=== PATIENT | female | born 1995 | race Caucasian/White ===

== ENCOUNTER 2020-06-15 18:47 | Emergency (ER) | payer OTHER, SELFPAY ==
--- NOTE | 2020-06-15 18:52 | ED.EAR ---
HPI - Ear Problem General Chief complaint: Ear Stated complaint: ear pain History of Present Illness HPI Narrative: Patient is a 24-year-old female who presents complaining of right ear pain x3 to 4 days. She reports a history of ear problems as a child. She also reports sinus pain and pressure x5 days. She denies fever, sore throat, cough or other complaints. She reports taking [id number] allergy medication with limited relief. MD Complaint: ear pain Location: right ear Related Data Allergies Allergy/AdvReac Type Severity Reaction Status Date / Time No Known Allergies Allergy Mild Verified 06/15/20 18:53 Review of Systems Review of Systems: Narrative: CONSTITUTIONAL: Denies fever, chills, or sweats. EYES: Denies visual changes, redness, or discharge. ENT: Right otalgia and facial pain CARDIOVASCULAR: Denies chest pain, palpitations, or edema. RESPIRATORY: Denies cough or dyspnea. GASTROINTESTINAL: Denies abdominal pain, nausea, vomiting, or diarrhea. GENITOURINARY: Denies dysuria or hematuria. SKIN: Denies rash or itching. MUSCULOSKELETAL: Denies back pain, joint pain, or myalgia. NEUROLOGIC: Denies headache, numbness, dizziness, or weakness. PSYCHIATRIC: Denies anxiety or depression. [facility] Past Medical History Medical History No significant past medical history Surgical History Surgical History (Updated 06/15/20 @ 18:55 by JORDAN More) No significant past surgical history Family History Family History Other No significant family history Social History Social History Smoking status: Never smoker Alcohol intake: current Substance use: never Living arrangements: with family Occupation/Education: occupation Gender identity (if verbalized by the patient): Female Comments At the time of signature, I have reviewed and agree with nursing past medical, surgical, social, and family history unless otherwise noted. Please see nursing chart for further information. There is no relevant family history pertinent to the presenting complaint. Exam Narrative: Exam Narrative: GENERAL: Well-appearing, well-nourished, and in no acute distress. HEAD: Normocephalic, atraumatic. EYES: EOMI. No redness or drainage. Conjunctiva are normal. ENT: Mucous membranes pink and moist. Nares clear. No rhinorrhea. Left TM normal. Right TM injected, bulging and cloudy. Throat normal. Uvula midline. Frontal sinus tenderness with palpation. NECK: AROM. Supple. No lymphadenopathy. CHEST: No respiratory distress. HEART: Regular rate and rhythm. EXTREMITIES: Normal range of motion. SKIN: Warm, dry, no rash. NEURO: No focal deficits. Alert and oriented x3. Gait steady. PSYCH: Normal affect. No signs of depression or anxiety. Course Vital Signs Vital signs: Vital Signs Temperature 36.8 C 06/15/20 18:58 Pulse Rate 86 06/15/20 18:58 Respiratory Rate 16 06/15/20 18:58 Blood Pressure 120/81 06/15/20 18:58 Pulse Oximetry 100 06/15/20 18:58 Temperature 36.8 C 06/15/20 18:58 Pulse Rate 86 06/15/20 18:58 Respiratory Rate 16 06/15/20 18:58 Blood Pressure 120/81 06/15/20 18:58 Pulse Oximetry 100 06/15/20 18:58 Medical Decision Making MDM Narrative Medical decision making narrative: Patient has right otitis media. Patient also has probable sinusitis x5 days. Discussed taking antibiotics. Patient to continue using [id number] allergy relief as well. Patient instructed to follow-up with her PCP as needed. Patient is stable for discharge home with outpatient follow-up as needed. Vital Signs Vital Signs: Vital Signs Temperature 36.8 C 06/15/20 18:58 Pulse Rate 86 06/15/20 18:58 Respiratory Rate 16 06/15/20 18:58 Blood Pressure 120/81 06/15/20 18:58 Pulse Oximetry 100 06/15/20 1
[2020-06-15 18:58] VITALS: BP 120/81; PULSE 86; RESP 16; TEMP 36.8; O2SAT 100
== END 2020-06-15 19:19 | disposition home or self-care (01) ==
PROVIDERS: Emergency Provider Nurse Practitioner; PCP Family Medicine
DX: H66.001 Acute suppurative otitis media without spontaneous rupture of ear drum, right ear (principal)
CPT/HCPCS: 99213; G0463

== ENCOUNTER 2022-04-23 13:14 | Emergency (ER) | payer OTHER, SELFPAY ==
[2022-04-23 13:24] VITALS: BP 100/73; PULSE 68; RESP 20; TEMP 36.1; O2SAT 100
--- NOTE | 2022-04-23 13:25 | ED.URI ---
HPI - URI/Sore Throat General Chief Complaint: Upper Respiratory Infection Stated Complaint: Sore Throat,Runny Nose,Congestion Time Seen by Provider: 04/23/22 13:25 Source: patient and RN notes reviewed Mode of arrival: ambulatory Limitations: no limitations History of Present Illness HPI Narrative: 26-year-old female presents with concern for sinus congestion, drainage, sneezing, coughing. Reports symptoms on Thursday. She reports she has been using Sandy D with some relief of symptoms. She denies fever, body aches, sweats. Reports chills. MD elicited complaint: cough and nasal congestion Related Data Home Medications Medication Instructions Recorded Confirmed No Home Medications 04/23/22 04/23/22 Allergies Allergy/AdvReac Type Severity Reaction Status Date / Time No Known Allergies Allergy Mild Verified 04/23/22 13:15 Review of Systems Review of Systems: CONSTITUTIONAL: Denies malaise, sweats, or fever. Reports chills EYES: Denies visual changes, redness, or discharge. ENT: Reports rhinorrhea, congestion. Denies sinus pain, otalgia and sore throat. CARDIOVASCULAR: Denies chest pain, palpitations, or edema. RESPIRATORY: Reports cough. Denies dyspnea. GASTROINTESTINAL: Denies abdominal pain, nausea, vomiting, diarrhea SKIN: Denies rash or itching. MUSCULOSKELETAL: Denies myalgia. NEUROLOGIC: Denies headache. All systems reviewed & are unremarkable except as noted in HPI and below PMFSH Past Medical History Medical History No significant past medical history Surgical History Surgical History No significant past surgical history Family History Family History Other No significant family history Social History Social History Smoking status: Never smoker Alcohol intake: current Substance use: never Gender identity (if verbalized by the patient): Female Comments At time of signature, agree with nursing past medical, surgical, social and family history. There is no relevant family history pertinent to the presenting complaint Exam Narrative: GENERAL: Well-appearing, well-nourished, and in no acute distress. HEAD: Normocephalic EYES: PERRLA, conjunctivae clear ENT: Nares clear, turbinates edematous and erythematous, clear discharge. Mucous membranes moist. TM pearly savage with sharp light reflex bilaterally; no tragal tenderness. Oropharynx not erythematous without lesions. Tonsils not enlarged and without exudate, no drooling, no hoarseness, no trismus, uvula midline. NECK: Supple. No lymphadenopathy CHEST: Clear to auscultation, breath sounds equal. No wheezing, rhonchi, rales, or stridor. No respiratory distress, speaks in full sentences. HEART: Regular rate and rhythm. No murmur heard. SKIN: Warm, dry, no rash. NEURO: Alert and oriented x3. PSYCH: Normal mood and affect Course Course Emergency Course: Patient is aware of diagnosis, understands and agrees to treatment plan. Anticipatory guidance given. Patient agrees to follow-up as directed and is aware of reasons to seek care at the emergency department. Portions of this record may have been created with voice recognition software Level of Care: Express Care Visit Vital Signs Vital signs: Reviewed. MDM - URI/Sore Throat MDM Narrative Medical decision making narrative: Differential diagnosis considered: Liu virus, strep pharyngitis, allergic rhinitis, upper respiratory tract infection, sinusitis, rhinosinusitis, nasopharyngitis. viral pharyngitis, otitis media, otitis externa, pneumonia, bronchitis, viral cough syndrome, viral syndrome, and influenza. Exam findings show no acute concerns or changes; patient is non-toxic appearing and is in no distress. Patient is appropriate for outpatient treatment and follow-up. Lab Data Attestation: I
== END 2022-04-23 13:40 | disposition home or self-care (01) ==
PROVIDERS: Emergency Provider Nurse Practitioner; PCP Family Medicine
DX: U07.1 COVID-19 (principal)
CPT/HCPCS: 87426; 99213; C9803; G0463